=== PATIENT | female | born 1955 | race American Indian/Alaskan Native ===

== ENCOUNTER 2020-09-27 20:17 | Emergency (ER) | payer MEDICARE, MEDICAID ==
--- NOTE | 2020-09-27 20:44 | Emergency Department Report ---
ED General Adult HPI - General Chief complaint: Medical Clearance Stated complaint: CLOT IN DIALYSIS PORT PUI?: No Time Seen by Provider: 09/27/20 20:24 Source: patient, EMS, old records reviewed Mode of arrival: Stretcher Limitations: No Limitations - History of Present Illness Initial comments: Is a 64-year-old female that presents emergency room with complaints of malfunctioning dialysis port. Patient states she was here last week and having her left arm fistula repaired due to rupturing. Patient states they have been u sing her right chest PermCath and today after her dialysis treatment the right return port became blocked off with a clot. Patient states she was able to complete dialysis but the dialysis nurse was not able to remove or retrieve the clot from the line And was not able to return to line to functioning. Patient denies any pain. Patient denies chest pain. Patient denies shortness of breath. Patient states blood thinner since her surgery and is wondering if that has caused her blood to coagulate and align. Patient denies recent travel. Patient denies recent international travel. Patient denies exposure to the novel coronavirus. Patient denies sick contacts. Patient denies fever and chills. Patient denies cough. Patient denies diarrhea. Patient denies coming in contact with anybody with symptoms of the novel coronavirus. -: Sudden Severity scale (0 -10): 0 Consistency: constant Improves with: none Worsens with: none Associated Symptoms: denies other symptoms. denies: confusion, chest pain, cough, diaphoresis, fever/chills, headaches, loss of appetite, malaise, nausea/vomiting, rash, seizure, shortness of breath, syncope, weakness Treatments Prior to Arrival: none - Related Data Home Medications Medication Instructions Recorded Confirmed Last Taken Calcium 667 mg PO TID 09/17/20 09/17/20 Unknown Nifedipine 60 mg PO DAILY 09/17/20 09/17/20 Unknown Velphoro (Nf) 500 mg PO TID 09/17/20 09/17/20 Unknown Previous Rx's Medication Instructions Recorded Last Taken Type oxyCODONE /ACETAMINOPHEN [Percocet 1 tab PO Q6HR PRN #10 tablet 09/20/20 Unknown Rx 5/325] Ferrous Sulfate [Iron 325 MG] 325 mg PO TID #90 tablet 09/22/20 Unknown Rx Allergies Allergy/AdvReac Type Severity Reaction Status Date / Time No Known Allergies Allergy Unverified 09/16/20 22:55 ED Review of Systems ROS: Stated complaint: CLOT IN DIALYSIS PORT Other details as noted in HPI Constitutional: denies: chills, fever Eyes: denies: eye pain, eye discharge, vision change ENT: denies: ear pain, throat pain Respiratory: denies: cough, shortness of breath, wheezing Cardiovascular: denies: chest pain, palpitations Endocrine: no symptoms reported Gastrointestinal: denies: abdominal pain, nausea, diarrhea Genitourinary: denies: urgency, dysuria, discharge Musculoskeletal: denies: back pain, joint swelling, arthralgia Skin: denies: rash, lesions Neurological: denies: headache, weakness, paresthesias Psychiatric: denies: anxiety, depression Hematological/Lymphatic: denies: easy bleeding, easy bruising ED Past Medical Hx - Past Medical History Previous Medical History?: Yes Hx Hypertension: Yes Hx Congestive Heart Failure: No Hx Diabetes: No Hx Renal Disease: Yes Hx Sickle Cell Disease: No Hx Asthma: No Hx COPD: No - Surgical History Past Surgical History?: Yes Additional Surgical History: AV fistula - Family History Family history: no significant - Social History Smoking Status: Never Smoker Substance Use Type: None - Medications Home Medications: Home Medications Medication Instructions Recorded Confirmed Last Taken Type Calcium 667 mg PO TID 09/17/20 09/17/20 Unknown History Nifedipine 60 mg PO DAILY 09/17/20 09/17/20 Unknown History Velphoro (Nf) 500 mg PO TID 09/17/20 09/17/20 Unknown History oxyCODONE /ACETAMINOPHEN [Percocet 1 tab PO Q6HR PRN #10 tablet 09/20/20 Unknown Rx 5/325] Ferrous Sulfate [Iron 325 MG] 325 mg PO TID #90 tablet 09/22/20 Unknown Rx ED Physical Exam - General Limitations: No Limitations General appearance: alert, in no apparent distress - Head Head exam: Present: atraumatic, normocephalic - Eye Eye exam: Present: normal appearance - ENT ENT exam: Present: mucous membranes moist - Neck Neck exam: Present: normal inspection - Respiratory Respiratory exam: Present: normal lung sounds bilaterally, other (Right chest permacath noted.). Absent: respiratory distress, chest wall tenderness - Cardiovascular Cardiovascular Exam: Present: regular rate, normal rhythm. Absent: systolic murmur, diastolic murmur, rubs, gallop - GI/Abdominal GI/Abdominal exam: Present: soft, normal bowel sounds - Extremities Exam Extremities exam: Present: normal inspection - Back Exam Back exam: Present: normal inspection - Neurological Exam Neurological exam: Present: alert, oriented X3 - Psychiatric Psychiatric exam: Present: normal affect, normal mood - Skin Skin exam: Present: warm, dry, normal color, other (Levels noted in left arm.). Absent: rash ED Course Vital Signs 09/27/20 09/27/20 09/27/20 20:34 20:41 20:45 Temperature 98.9 F Pulse Rate 105 H 102 H 99 H Respiratory 11 L 11 L 13 Rate Blood Pressure 166/88 Blood Pressure 166/88 [Right] O2 Sat by Pulse 100 99 Oximetry 09/27/20 09/27/20 09/27/20 20:46 20:54 20:55 Temperature 98.9 F 98.9 F Pulse Rate 102 H 102 H Respiratory 11 L 11 L Rate Blood Pressure 166/88 Blood Pressure 166/88 [Right] O2 Sat by Pulse 100 100 Oximetry 09/27/20 09/27/20 09/27/20 21:01 21:15 21:31 Temperature Pulse Rate 98 H 98 H 98 H Respiratory 12 22 14 Rate Blood Pressure 166/88 132/94 132/94 Blood Pressure [Right] O2 Sat by Pulse 100 100 100 Oximetry 09/27/20 09/27/20 21:45 22:01 Temperature Pulse Rate 97 H 96 H Respiratory 12 12 Rate Blood Pressure 132/94 132/94 Blood Pressure [Right] O2 Sat by Pulse 100 99 Oximetry - Reevaluation(s) Reevaluation #1: Patient states she has an appointment tomorrow with Dr. Epstein in his office at 1 PM. I discussed all results and clinical findings with patient. I discussed plan of care with patient. Patient agrees with plan of care. Patient is stable for discharge. Patient will be discharged home. Patient given discharge instructions. Patient voiced understanding of discharge instructions. 09/27/20 22:01 - Consultations Consultation #1: I discussed the case with Dr. Epstein, vascular surgery. Dr. Epstein says the patient has an appointment with him tomorrow morning and if the patient's labs check out and the patient does not need emergent dialysis, the patient can be discharged home with follow-up as an outpatient in the morning. 09/27/20 20:44 ED Medical Decision Making - Lab Data Result diagrams: 09/27/20 20:39 09/27/20 20:39 - Medical Decision Making Patient is a 64-year-old female that presents emergency room with complaints of a clot in her permacath in her right chest. Patient had a full course of dialysis today and after the dialysis completed the patient was being disconn ected from dialysis and the dialysis nurse noticed that there was a clot in her line. Patient states that the nurse was unable to remove the clot or express the clot. I discussed the case with vascular surgery and vascular surgery recommended discharge home and the patient can follow-up in the office tomorrow. Patient has an established appointment with Dr. Epstein, vascular surgery at 1 PM tomorrow. Patient had labs done and labs are essentially unremarkable and consistent with end-stage renal disease. Patient's potassium is stable. Patient does not require any further emergency medical services. Per vascular surgery, the patient does not require admission. I discussed all results with patient. Discussed discharge instructions with patient. - Differential Diagnosis Malfunctioning dialysis catheter, clotted dialysis catheter, end-stage max Critical Care Time: No Critical care attestation.: If time is entered above; I have spent that time in minutes in the direct care of this critically ill patient, excluding procedure time. ED Disposition Clinical Impression: Dialysis catheter clot or failure, End stage renal disease Disposition: DC-01 TO HOME OR SELFCARE Is pt being admited?: No Does the pt Need Aspirin: No Condition: Stable Instructions: Vascular Access for Hemodialysis Additional Instructions: Patient to see vascular surgery, Dr. Epstein at 1 PM tomorrow. Patient already has an established appointment. Patient to follow-up with primary care in 2 to 3 days. Patient to rest. Patient to increase water. Patient to avoid strenuous exercise or heavy lifting until cleared by vascular surgery and primary care. Patient to continue all medications. Patient to return to the ER if condition worsens, changes or new symptoms arise. Referrals: PRIMARY CARE, [Primary Care Provider] - 2-3 Days AMARI EPSTEIN MD [Staff Physician] - [facility] Time of Disposition: 22:03
[2020-09-27 20:52] LABS: Hematocrit 26.3 % (30.3-42.9); Hemoglobin 8.6 gm/dl (10.1-14.3); Mean Corpuscular HGB Conc 33 % (30-34); Mean Corpuscular Volume 89 fl (79-97); Platelet Count 247 K/mm3 (140-440); Red Blood Count 2.95 M/mm3 (3.65-5.03); Red Cell Distribution Width 15.4 % (13.2-15.2)
[2020-09-27 21:03] LABS: INR 1.1 (0.87-1.13); Partial Thromboplastin Time 40.3 Sec. (24.2-36.6)
[2020-09-27 21:38] LABS: Alanine Aminotransferase < 5 units/L (7-56); Albumin 2.7 g/dL (3.9-5); BUN/Creatinine Ratio 3; Blood Urea Nitrogen 17 mg/dL (7-17); Calcium 8.5 mg/dL (8.4-10.2); Hemolysis Index 4
[2020-09-27 22:15] VITALS: BP 132/94
== END 2020-09-27 22:36 | disposition home or self-care (01) ==
LOC: ED 20:17
DX: I12.0 Hypertensive chronic kidney disease with stage 5 chronic kidney disease or end stage renal disease (principal); T82.49XA Other complication of vascular dialysis catheter, initial encounter
CPT/HCPCS: 36415; 80053; 85027; 85610; 85730

== ENCOUNTER 2020-10-10 10:38 | Day surgery (SDC) | payer MEDICAID, MEDICARE ==
[2020-10-10] MEDS ORDERED: HEPARIN/NS 5000 UNIT/500ML 1,000 ML IR ONE (11:44)
[2020-10-10 11:45] LABS: Hematocrit 26.1 % (30.3-42.9); Hemoglobin 8.2 gm/dl (10.1-14.3); Mean Corpuscular HGB Conc 32 % (30-34); Mean Corpuscular Volume 89 fl (79-97); Platelet Count 273 K/mm3 (140-440); Red Blood Count 2.92 M/mm3 (3.65-5.03); Red Cell Distribution Width 18.2 % (13.2-15.2)
[2020-10-10] MEDS ORDERED: HEPARIN 10,000 UNITS/10 ML VIAL ONE ×2 (11:45→14:44)
[2020-10-10] MEDS ORDERED: LIDOCAINE (2%) 20 MG/1 ML VIAL 20 ML MDV INFILTRATI ONE (11:45)
[2020-10-10] MEDS ORDERED: ceFAZolin/Water 2 GM/20 ML 2 GM/20 ML SYRINGE IV ONE (11:46)
[2020-10-10 11:54] LABS: INR 1.01 (0.87-1.13)
[2020-10-10 11:55] LABS: Partial Thromboplastin Time 30.9 Sec. (24.2-36.6)
[2020-10-10] MEDS ORDERED: SODIUM CHLORIDE 0.9% 500 ML 500 ML IV SCH (12:00)
[2020-10-10 13:08] LABS: Calcium 8.8 mg/dL (8.4-10.2)
[2020-10-10] MEDS: MIDAZOLAM 2 MG/2 ML INJ ONE ×2 (13:47→14:16)
[2020-10-10] MEDS: fentaNYL 100 MCG/2 ML INJ ONE ×3 (13:47→14:52)
[2020-10-10] MEDS ORDERED: SODIUM CHLORIDE 0.9% 0 ML ONE (13:48)
[2020-10-10] MEDS ORDERED: ALTEPLASE 2 MG INJ ONE (14:23)
[2020-10-10] MEDS ORDERED: WATER FOR INJ Sterile (PF) 20 ML ONE (14:24)
[2020-10-10] MEDS ORDERED: hydrALAZINE 20 MG/1 ML INJ ONE (14:34)
[2020-10-10] MEDS ORDERED: fentaNYL 100 MCG/2 ML INJ ONE (14:43)
[2020-10-10] MEDS ORDERED: MIDAZOLAM 2 MG/2 ML INJ ONE (14:43)
--- NOTE | 2020-10-10 15:33 | Short Stay Summary ---
Short Stay Documentation Date of service: 10/10/20 Narrative H&P: See H&P - History H&P: obtained from office - Allergies and Medications Current Medications: Allergies No Known Allergies Allergy (Unverified 09/16/20 22:55) Home Medications Medication Instructions Recorded Confirmed Last Taken Type Calcium 667 mg PO TID 09/17/20 10/10/20 10/09/20 History 667 mg Nifedipine 60 mg PO BID 09/17/20 10/10/20 10/09/20 History 60 mg Velphoro (Nf) 500 mg PO TID 09/17/20 10/10/20 10/09/20 History 1 tab oxyCODONE /ACETAMINOPHEN [Percocet 1 tab PO Q6HR PRN #10 tablet 09/20/2009/13 Unknown Rx 5/325] Ferrous Sulfate [Iron 325 MG] 325 mg PO DAILY 10/10/20 10/10/20 Unknown History Active Medications Sodium Chloride (Nacl 0.9% 500 Ml) 500 mls @ 50 mls/hr IV DIRECT AGUILAR - Brief post op/procedure progress note Date of procedure: 10/10/20 Pre-op diagnosis: Complications of Dialysis Access Post-op diagnosis: same Procedure: 1. Ultrasound-Guided Access Left Arm AV Graft with 8 [place] Sheath Venous 2. Ultrasound-Guided Access Left Arm AV Graft with 7 [place] Sheath Arterial 3. Fistulogram with Central Venogram 4. Angioplasty of Left Subclavian Vein with 12 x 40 Conquest Balloon 5. Angioplasty and Stent of Left Arm AV Graft with 8 x 100 Covera Stent Graft And 8 x 40 [place] Balloon 6. Percutaneous Pharmacomechanical Thrombectomy of Left Arm AV Graft With AngioJet Catheter, Trerotola Device, and 10 mg of TPA 7. Catheter in Left Axillary Artery 8. Diagnostic Left Upper Extremity Angiogram 9. Angioplasty of Left Axillary Artery with 7 x 80 IN.PACT Drug-Coated Balloon 10. Radiologic Supervision with Interpretation 11. Monitored Moderate Sedation (Total Anesthesia Time: 80 Minutes) Anesthesia: local, other (Monitored Moderate Sedation) Surgeon: AMARI HATFIELD Estimated blood loss: 50-100ml Pathology: none Condition: stable - Disposition Condition at discharge: Good Disposition: DC-01 TO HOME OR SELFCARE Short Stay Discharge Plan Activity: other Wound: remove dressing (In 24 hours), other (Remove the upper sutures by pulling the longer of the 2 strings) Follow up with: AMARI HATFIELD MD [Staff Physician] - 14 Days Prescriptions: Apixaban [Eliquis] 5 mg PO Q12HR #60 tablet
--- NOTE | 2020-10-10 15:39 | Operative Report ---
Operative Report Operative Report: Date of Procedure: 10/10/2020 Pre-operative Diagnosis: Complications of Dialysis Access Post-operative Diagnosis: Same Procedure(s): 1. Ultrasound-Guided Access Left Arm AV Graft with 8 [place] Sheath Venous 2. Ultrasound-Guided Access Left Arm AV Graft with 7 [place] Sheath Arterial 3. Fistulogram with Central Venogram 4. Angioplasty of Left Subclavian Vein with 12 x 40 Conquest Balloon 5. Angioplasty and Stent of Left Arm AV Graft with 8 x 100 Covera Stent Graft And 8 x 40 [place] Balloon 6. Percutaneous Pharmacomechanical Thrombectomy of Left Arm AV Graft With AngioJet Catheter, Trerotola Device, and 10 mg of TPA 7. Catheter in Left Axillary Artery 8. Diagnostic Left Upper Extremity Angiogram 9. Angioplasty of Left Axillary Artery with 7 x 80 IN.PACT Drug-Coated Balloon 10. Radiologic Supervision with Interpretation 11. Monitored Moderate Sedation (Total Anesthesia Time: 80 Minutes) Surgeon: Aly Epstein M.D. 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 Shortly after the revision her AV graft thrombosed so she is on hemodialysis through a right internal jugular permacath. She is in need of a diagnostic fistulogram with possible intervention. She has been given the risk, benefits, and alternative procedures and consented to the procedure. Angiographic Findings: The diagnostic fistulogram revealed thrombus throughout the graft. There was an 80% stenosis of the venous anastomosis. There was thrombus within stents extending through the axillary vein and subclavian vein. There was approximately 80% stenosis of the stent within the subclavian vein. There was thrombus extending into the left internal jugular vein. The innominate vein and superior vena cava vein were patent without evidence of flow-limiting stenosis. The turn of the loop graft was stenotic with approximately 60% stenosis. There was thrombus within the arterial inflow of the graft and the arterial anastomosis was occluded. 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 The circumflex femoral artery was a large collateral that collateralized to the proximal brachial artery which was patent without evidence of flow-limiting stenosis to the remainder of the distal arm. After intervention the arterial anastomosis was patent with minimal residual thrombus and less than 15% residual stenosis. The turn of the loop graft was patent with less than 15% residual stenosis and minimal residual thrombus. The venous anastomosis was patent with less than 15% residual stenosis. There was thrombus within the axillary vein stent graft however this was not flow-limiting. The subclavian vein stent graft was patent with less than 15% residual stenosis and minimal residual thrombus. There was brisk flow of contrast throughout the entire graft and the flow within the left upper extremity remained brisk through collaterals from the circumflex humeral artery to the brachial artery. Description of Procedure: The patient was was brought to the Sales Promotion Coordinator and laid in supine position. After a timeout was performed her left arm was prepped and draped in normal sterile fashion. Ultrasound was used to identify the graft near the venous outflow and lidocaine was used to anesthetize the skin and overlying soft tissue. A 21- gauge needle was used, with ultrasound guidance, to access the graft towards the venous outflow and a 0.018 micropuncture wire was advanced into the graft. The needle was removed and a 7 [place] sheath was placed by Seldinger technique. A vertebral catheter and 0.035 Glidewire was advanced into the graft. I then advanced the catheter and wire through the graft and into the central venous system. I performed a central venogram that demonstrated that the central venous system was patent without evidence of flow-limiting stenosis. I advanced a 0.035 advantage wire into the inferior vena cava and then performed a fistulogram with the previously described findings. I exchanged the 7 [place] sheath for an 8 x 11 [place] sheath and then systemically heparinized the patient with 5000 units of heparin IV. I then performed angioplasty of the subclavian vein and axillary vein with a 12 x 40 conquest balloon followed by angioplasty of the entire graft with a 6 x 200 EverFlex Balloon. I then used an AngioJet catheter to perform percutaneous mechanical thrombectomy of the graft. There was a significant amount of residual thrombus so and injected 10 mg of TPA into the graft and allow this to dwell for approximately 15 minutes. There was still residual thrombus within the stent in the axillary vein so I used an 8 [place] multipurpose guide catheter and attempted to aspirate the thrombus however this was unsuccessful. I also tried to aspirate thrombus within the graft near the venous anastomosis however this was unsuccessful as well as having residual stenosis of approximately 75% so I decided to place a stent graft at this position. I removed the 8 [place] sheath and advanced an 8 x 100 Covera stent graft, bareback, into position and deployed it. I removed the delivery catheter and replaced a [place] sheath. I postdilated the stent graft with an 8 x 40 [place] balloon with a result of less than 15% residual stenosis. I then used ultrasound to identify the graft near the venous outflow and anesthetize skin and overlying soft tissue with lidocaine and used a 21-gauge access needle with ultrasound guidance to access the graft towards the arterial inflow. I advanced the 0.018 micropuncture wire into the graft and after removing the needle placed a 7 [place] sheath towards the arterial inflow. I used the vertebral catheter and Glidewire and advanced the catheter wire towards the arterial anastomosis. I was able to eventually cross the occluded anastomosis and into the proximal axillary artery. I performed a diagnostic angiogram with the previously described findings. I advanced the advantage wire into the axillary artery and performed angioplasty of the anastomosis using a 7 x 80 IN.PACT drug-coated balloon with a result of approximately 20% residual stenosis. I then used the balloon to perform angioplasty of the stenosis within the turn of the graft with a result of less than 15% residual stenosis. I advanced a Trerotola device into the arterial anastomosis secondary to some thrombus noted within the arterial inflow and used it to morcellate the thrombus. I aspirated the thrombus through the 7 [place] sheath and then advanced the vertebral catheter into the axillary artery and performed a final angiogram that revealed minimal residual thrombus. At this point I removed all catheters and wires and used 2-0 Ethilon in slipknot fashion to close each entry site after removing the sheaths. Sterile dressings were then applied to the entry site and the patient was transported to the recovery area in stable condition.
[2020-10-10] MEDS ORDERED: oxyCODONE /ACETAMINOPHEN 5-325MG TAB PO PRN (15:54)
[2020-10-10 16:22] VITALS: BP 165/87
[2020-10-10] MEDS ORDERED: APIXABAN 5 MG TAB PO SCH (17:00)
== END 2020-10-10 10:39 | disposition home or self-care (01) ==
LOC: CATHLABREC 10:38
PROVIDERS: ATTEND Surgery Vascular Surgery
DX: T82.868A Thrombosis due to vascular prosthetic devices, implants and grafts, initial encounter (principal); I12.0 Hypertensive chronic kidney disease with stage 5 chronic kidney disease or end stage renal disease; N18.6 End stage renal disease; Z79.899 Other long term (current) drug therapy; E66.9 Obesity, unspecified; D64.9 Anemia, unspecified; Z98.890 Other specified postprocedural states; Z68.30 Body mass index [BMI] 30.0-30.9, adult; Y82.8 Other medical devices associated with adverse incidents; Y92.89 Other specified places as the place of occurrence of the external cause
CPT/HCPCS: 36415; 36906; 36907; 80048; 85027; 85610; 85730; 99156; 99157; C1725; C1757; C1769; C1874; C1887; C1894; C2623; J0360; J0690; J1644; J2250; J2997; J3010; J7040; Q9967

== ENCOUNTER 2021-07-11 22:42 | Emergency (ER) | payer MEDICARE, MEDICAID ==
[2021-07-12] MEDS ORDERED: ACETAMINOPHEN 500 MG TAB PO ONE (00:15)
--- NOTE | 2021-07-12 00:51 | XRay Report ---
CHEST 2 VIEWS INDICATION / CLINICAL INFORMATION: cough. COMPARISON: None available. FINDINGS: SUPPORT DEVICES: None. HEART / MEDIASTINUM: No significant abnormality. LUNGS / PLEURA: There is pulmonary vascular indistinctness. No focal consolidation. No pneumothorax. ADDITIONAL FINDINGS: No significant additional findings. IMPRESSION: 1. Mild pulmonary edema. Signer Name: Elbert Rojas DO Signed: 07/12/2021 12:47 AM Workstation Name: [id number]
[2021-07-12 00:52] LABS: Basophils % (Auto) 0.4 % (0.0-1.8); Eosinophils % (Auto) 0.8 % (0.0-4.3); Hematocrit 34.6 % (30.3-42.9); Hemoglobin 10.8 gm/dl (10.1-14.3); Lymphocytes # (Auto) 0.6 K/mm3 (1.2-5.4); Lymphocytes % (Auto) 20.9 % (13.4-35.0); Mean Corpuscular HGB Conc 31 % (30-34); Mean Corpuscular Volume 95 fl (79-97); Monocytes # (Auto) 0.2 K/mm3 (0.0-0.8); Monocytes % (Auto) 6.8 % (0.0-7.3); Platelet Count 123 K/mm3 (140-440); Red Blood Count 3.64 M/mm3 (3.65-5.03); Red Cell Distribution Width 14.1 % (13.2-15.2)
[2021-07-12 01:00] LABS: Albumin 3.5 g/dL (3.9-5); Calcium 8.9 mg/dL (8.4-10.2)
--- NOTE | 2021-07-12 03:05 | Emergency Department Report ---
ED General Adult HPI - General Chief complaint: Upper Respiratory Infection Stated complaint: COVID POS Time Seen by Provider: 07/12/21 01:47 Source: patient Mode of arrival: Ambulatory Limitations: No Limitations - History of Present Illness Initial comments: She is a 65-year-old female who presents with COVID-19 she is in end-stage renal disease patient and she gets dialysis Friday. Patient states that she is having sinus infection body pain and myalgias. She was toe that she can get her regular dialysis out of place and she will need to go to a specialized dialysis clinic that treats Covid patients. Patient denies having any advertent nausea or vomiting. Severity scale (0 -10): 8 - Related Data Home Medications Medication Instructions Recorded Confirmed Last Taken Calcium 667 mg PO TID 09/17/20 10/10/20 10/09/20 667 mg Nifedipine 60 mg PO BID 09/17/20 10/10/20 10/09/20 60 mg Velphoro (Nf) 500 mg PO TID 09/17/20 10/10/20 10/09/20 1 tab Ferrous Sulfate [Iron 325 MG] 325 mg PO DAILY 10/10/20 10/10/20 Unknown Previous Rx's Medication Instructions Recorded Last Taken Type oxyCODONE /ACETAMINOPHEN [Percocet 1 tab PO Q6HR PRN #10 tablet 09/20/20 Unknown Rx 5/325 mg] Apixaban [Eliquis] 5 mg PO Q12HR #60 tablet 10/10/20 Unknown Rx oxyCODONE /ACETAMINOPHEN [Percocet 1 tab PO Q4HR #40 tab 10/10/20 Unknown Rx 5/325] Acetaminophen/Codeine [Tylenol 1 tab PO Q6H PRN #12 tab 07/12/21 Unknown Rx /Codeine # 3 tab] Oxymetazoline HCl [Nasal 15 ml NS Q6H #1 spray 07/12/21 Unknown Rx Decongestant] Allergies Allergy/AdvReac Type Severity Reaction Status Date / Time No Known Allergies Allergy Unverified 09/16/20 22:55 ED Review of Systems ROS: Stated complaint: COVID POS Other details as noted in HPI Constitutional: denies: chills, fever Eyes: denies: eye pain, eye discharge, vision change ENT: congestion. denies: ear pain, throat pain Respiratory: cough. denies: shortness of breath, wheezing Cardiovascular: denies: chest pain, palpitations Endocrine: no symptoms reported Gastrointestinal: denies: abdominal pain, nausea, diarrhea Genitourinary: denies: urgency, dysuria, discharge Musculoskeletal: myalgia. denies: back pain, joint swelling, arthralgia Skin: denies: rash, lesions Neurological: denies: headache, weakness, paresthesias Psychiatric: denies: anxiety, depression Hematological/Lymphatic: denies: easy bleeding, easy bruising ED Past Medical Hx - Past Medical History Previous Medical History?: Yes Hx Hypertension: Yes Hx Congestive Heart Failure: No Hx Diabetes: No Hx Renal Disease: Yes (DIALYSIS) Hx Sickle Cell Disease: No Hx Asthma: No Hx COPD: No - Surgical History Past Surgical History?: Yes Additional Surgical History: AV fistula - Social History Smoking Status: Never Smoker - Medications Home Medications: Home Medications Medication Instructions Recorded Confirmed Last Taken Type Calcium 667 mg PO TID 09/17/20 10/10/20 10/09/20 History 667 mg Nifedipine 60 mg PO BID 09/17/20 10/10/20 10/09/20 History 60 mg Velphoro (Nf) 500 mg PO TID 09/17/20 10/10/20 10/09/20 History 1 tab oxyCODONE /ACETAMINOPHEN [Percocet 1 tab PO Q6HR PRN #10 tablet 09/20/20 10/10/20 Unknown Rx 5/325 mg] Apixaban [Eliquis] 5 mg PO Q12HR #60 tablet 10/10/20 Unknown Rx Ferrous Sulfate [Iron 325 MG] 325 mg PO DAILY 10/10/20 10/10/20 Unknown History oxyCODONE /ACETAMINOPHEN [Percocet 1 tab PO Q4HR #40 tab 10/10/20 Unknown Rx 5/325] Acetaminophen/Codeine [Tylenol 1 tab PO Q6H PRN #12 tab 07/12/21 Unknown Rx /Codeine # 3 tab] Oxymetazoline HCl [Nasal 15 ml NS Q6H #1 spray 07/12/21 Unknown Rx Decongestant] ED Physical Exam - General Limitations: No Limitations General appearance: alert, in no apparent distress - Head Head exam: Present: atraumatic, normocephalic - Eye Eye exam: Present: normal appearance - ENT ENT exam: Present: mucous membranes moist - Neck Neck exam: Present: normal inspection - Respiratory Respiratory exam: Present: normal lung sounds bilaterally. Absent: respiratory distress - Cardiovascular Cardiovascular Exam: Present: regular rate, normal rhythm. Absent: systolic murmur, diastolic murmur, rubs, gallop - GI/Abdominal GI/Abdominal exam: Present: soft, normal bowel sounds - Extremities Exam Extremities exam: Present: normal inspection - Back Exam Back exam: Present: normal inspection - Neurological Exam Neurological exam: Present: alert, oriented X3 - Psychiatric Psychiatric exam: Present: normal affect, normal mood - Skin Skin exam: Present: warm, dry, intact, normal color. Absent: rash ED Course Vital Signs 07/11/21 07/12/21 22:45 01:03 Temperature 101.9 F H Pulse Rate 80 Respiratory 16 16 Rate Blood Pressure 114/62 O2 Sat by Pulse 95 Oximetry ED Medical Decision Making - Lab Data Result diagrams: 07/12/21 00:25 07/12/21 00:25 Lab Results 07/12/21 07/12/21 Range/Units 00:25 00:25 WBC 2.8 L (4.5-11.0) K/mm3 RBC 3.64 L (3.65-5.03) M/mm3 Hgb 10.8 (10.1-14.3) gm/dl Hct 34.6 (30.3-42.9) % MCV 95 (79-97) fl MCH 30 (28-32) pg MCHC 31 (30-34) % RDW 14.1 (13.2-15.2) % Plt Count 123 L (140-440) K/mm3 Lymph % (Auto) 20.9 (13.4-35.0) % [place] % (Auto) 6.8 (0.0-7.3) % Eos % (Auto) 0.8 (0.0-4.3) % Baso % (Auto) 0.4 (0.0-1.8) % Lymph # (Auto) 0.6 L (1.2-5.4) K/mm3 [place] # (Auto) 0.2 (0.0-0.8) K/mm3 Eos # (Auto) 0.0 (0.0-0.4) K/mm3 Baso # (Auto) 0.0 (0.0-0.1) K/mm3 Seg Neutrophils % 71.1 H (40.0-70.0) % Seg Neutrophils # 2.0 (1.8-7.7) K/mm3 Sodium 135 L (137-145) mmol/L Potassium 5.3 H (3.6-5.0) mmol/L Chloride 93.2 L (98-107) mmol/L Carbon Dioxide 18 L (22-30) mmol/L Anion Gap 29 mmol/L BUN 59 H (7-17) mg/dL Creatinine 12.8 H (0.6-1.2) mg/dL Estimated GFR 4 ml/min BUN/Creatinine Ratio 5 % Glucose 110 H (65-100) mg/dL Calcium 8.9 (8.4-10.2) mg/dL Total Bilirubin 0.30 (0.1-1.2) mg/dL AST 21 (5-40) units/L ALT 12 (7-56) units/L Alkaline Phosphatase 71 (35-129) units/L Total Protein 7.0 (6.3-8.2) g/dL Albumin 3.5 L (3.9-5) g/dL Albumin/Globulin Ratio 1.0 % - Medical Decision Making Cdx: Covid 19 Ddx: PNA, uremia I will get chest x-ray blood work and I will discharge patient with Afrin and tramadol for pain. 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 Critical care attestation.: If time is entered above; I have spent that time in minutes in the direct care of this critically ill patient, excluding procedure time. ED Disposition Clinical Impression: COVID-19, ESRD (end stage renal disease) on dialysis Sinusitis Qualifiers: Sinusitis location: unspecified location Chronicity: acute Recurrence: non- recurrent Qualified Code(s): J01.90 - Acute sinusitis, unspecified Disposition: 01 HOME / SELF CARE / HOMELESS Is pt being admited?: No Does the pt Need Aspirin: No Condition: Stable Prescriptions: Oxymetazoline HCl [Nasal Decongestant] 15 ml NS Q6H #1 spray Acetaminophen/Codeine [Tylenol /Codeine # 3 tab] 1 tab PO Q6H PRN #12 tab PRN Reason: Pain , Severe (7-10) Referrals: PRIMARY CARE, [Primary Care Provider] - 3-5 Days
[2021-07-12 04:01] VITALS: BP 87/57
== END 2021-07-12 04:03 | disposition home or self-care (01) ==
LOC: ED 22:42
DX: U07.1 COVID-19 (principal); J32.9 Chronic sinusitis, unspecified; I12.0 Hypertensive chronic kidney disease with stage 5 chronic kidney disease or end stage renal disease; N18.6 End stage renal disease; Z99.2 Dependence on renal dialysis; Z98.890 Other specified postprocedural states
CPT/HCPCS: 36415; 71046; 80053; 85025; 99283

== ENCOUNTER 2022-02-06 10:05 | Emergency (ER) | payer MEDICARE, MEDICAID ==
[2022-02-06 10:26] VITALS: BP 127/68
--- NOTE | 2022-02-06 10:58 | XRay Report ---
CHEST 2 VIEWS INDICATION / CLINICAL INFORMATION: Chest Pain. COMPARISON: None available. FINDINGS: SUPPORT DEVICES: None. HEART / MEDIASTINUM: No significant abnormality. LUNGS / PLEURA: No significant pulmonary or pleural abnormality. No pneumothorax. ADDITIONAL FINDINGS: Left subclavian vascular stents IMPRESSION: 1. No acute findings. Signer Name: Maurice Lin MD Signed: 02/06/2022 10:54 AM Workstation Name: [id number]
[2022-02-06 11:28] LABS: Basophils % (Auto) 0.5 % (0.0-1.8); Eosinophils # (Auto) 0.1 K/mm3 (0.0-0.4); Hematocrit 38.7 % (30.3-42.9); Hemoglobin 12.5 gm/dl (10.1-14.3); Lymphocytes # (Auto) 0.9 K/mm3 (1.2-5.4); Lymphocytes % (Auto) 25.1 % (13.4-35.0); Mean Corpuscular HGB Conc 32 % (30-34); Mean Corpuscular Volume 92 fl (79-97); Monocytes # (Auto) 0.4 K/mm3 (0.0-0.8); Monocytes % (Auto) 12.7 % (0.0-7.3); Platelet Count 167 K/mm3 (140-440); Red Blood Count 4.22 M/mm3 (3.65-5.03); Red Cell Distribution Width 14.2 % (13.2-15.2)
[2022-02-06 11:51] LABS: Albumin 4.2 g/dL (3.9-5); Calcium 9.1 mg/dL (8.4-10.2)
--- NOTE | 2022-02-07 10:07 | Electrocardiograph Report ---
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
== END 2022-02-08 15:48 | disposition left against medical advice (07) ==
LOC: ED 10:05
DX: I95.9 Hypotension, unspecified (principal); R53.1 Weakness; Z53.21 Procedure and treatment not carried out due to patient leaving prior to being seen by health care provider
CPT/HCPCS: 36415; 71046; 80053; 84484; 85025; 93005